=== PATIENT | female | born 1990 | race Caucasian/White ===

== ENCOUNTER → 2024-12-29 | Outpatient (CLI) | payer BC | END | disposition home or self-care (01) | LOC: US 13:07 | PROVIDERS: ATTEND Nurse Practitioner Family | DX: N83.292 Other ovarian cyst, left side (principal); R10.2 Pelvic and perineal pain; R10.814 Left lower quadrant abdominal tenderness ==

== ENCOUNTER → 2025-01-16 | Outpatient (CLI) | payer BC ==
[~2025-01-16] MED LIST: GADOTERATE MEGLUMINE 10 MMOL/20 ML VIAL IV ONE
== END | disposition home or self-care (01) ==
LOC: MRI 12:50
PROVIDERS: ATTEND Nurse Practitioner Family
DX: N94.9 Unspecified condition associated with female genital organs and menstrual cycle (principal); R10.32 Left lower quadrant pain; Z90.710 Acquired absence of both cervix and uterus